=== PATIENT | male | born 1965 | race Caucasian/White ===

== ENCOUNTER 2024-12-21 07:04 | Outpatient (CLI) | payer OTHER, SELFPAY ==
--- NOTE | 2024-12-21 07:15 | CRLHL7_ITS ---
For Patients: As a result of the Century Cures Act, medical imaging exams and procedure reports are released immediately into your electronic medical record. You may view this report before your referring provider. If you have questions, please contact your health care provider. INDICATION: Hypertension TECHNIQUE: Grayscale, color Doppler and power Doppler evaluation of the kidneys and renal arteries performed bilaterally COMPARISON: None available FINDINGS: BILATERAL RENAL ARTERY DUPLEX ULTRASOUND ABDOMINAL AORTA: Peak systolic velocity = 125 cm/s. No aortic aneurysm. RIGHT KIDNEY: 10.4 cm in length. There is no hydronephrosis. Peak systolic velocity = 80 cm/second Renal artery to aortic peak systolic velocity ratio = 0.64 Resistive indices: 0.61 - 0.69 Renal vein = patent LEFT KIDNEY: 11.5 cm in length. There is no hydronephrosis. Peak systolic velocity = 113 cm/second. There are 2 renal arteries noted. Velocities are within normal limits. Renal artery to aortic peak systolic velocity ratio = 0.91 Resistive indices: 0.67-0.76 Renal vein = patent IMPRESSION: No evidence of significant renal artery stenosis. Dictated by Angelito Sanchez MD @ 12/21/2024 1:01:12 PM (Electronically Signed)
== END 2024-12-21 07:05 | disposition home or self-care (01) ==
LOC: US 07:11
PROVIDERS: PCP Family Medicine; Visit Provider Family Medicine
DX: I10 Essential (primary) hypertension (principal)
CPT/HCPCS: 76775; 93975

== ENCOUNTER 2025-08-06 23:31 | Emergency (ER) | payer OTHER, SELFPAY ==
--- OUTSIDE RECORDS SUMMARY | 2025-08-06 23:34 | XMS_ITS | Clinical Summary ---
Author Organization [employer] [facility] Address [address] [place] [address] Care Team Providers Care Nursing Manager Name Role Phone Maximiliano Summers MD Primary Care Provider Stephanie Hayes MD Unavailable [phone] Allergies No known active allergies Medications MedicationSigDispense QuantityRefillsLast FilledStart DateEnd DateStatus aspirin (ECOTRIN) 81 mg enteric coated tablet Indications:Antiplatelet or antithrombotic long-term useTake 1 tablet by mouth once daily with a meal.Active allopurinoL (ZYLOPRIM) 300 mg tablet Indications:Gout, unspecified cause, unspecified chronicity, unspecified site Take 1 Tablet (300 mg) by mouth once daily. 90 Tablet 5Active atorvastatin (LIPITOR) 20 mg tablet Indications:Hyperlipidemia, unspecified hyperlipidemia typeTake 1 Tablet (20 mg) by mouth at bedtime. 90 Tablet 5Active fenofibrate nanocrystallized (TRICOR) 145 mg tablet Indications:HypertriglyceridemiaTake 1 Tablet (145 mg) by mouth once daily with a meal. 90 Tablet 5Active omeprazole (PRILOSEC) 20 mg Delayed-Release capsule Indications:Gastroesophageal reflux disease without esophagitisTake 1 Capsule (20 mg) by mouth once daily before a meal. 90 Capsule 5Active tirzepatide (weight loss) (Zepbound) 15 mg/0.5 mL pen Indications:Obesity, unspecified class, unspecified obesity type, unspecified whether serious comorbidity presentInject 15 mg subcutaneous once weekly. 6 mL 5Active NIFEdipine 60 mg extended-release tablet Indications:HTN (hypertension)Take 1 Tablet (60 mg) by mouth once daily before a meal. 90 Tablet 306//931113/6Active cholecalciferol (Vitamin D3) 2,000 unit tablet Indications:Vitamin D deficiencyTake 1 Tablet (2,000 units) by mouth once daily. Please start these tablets after you complete the weekly Ergocalciferol course. 90 Tablet 5Active tadalafiL (CIALIS;ADCIRCA) 20 mg tablet Indications:Other male erectile dysfunctionTake 1 Tablet (20 mg) by mouth once daily if needed for Erectile Dysfunction. Take 30 minutes before sexual activity. 10 Tablet 5Active torsemide 40 mg tab Indications:Leg edemaTake 40 mg by mouth once daily. 90 Tablet 5Active carvediloL (COREG) 6.25 mg tablet Indications:Benign essential HTNTAKE 1 TABLET(6.25 MG) BY MOUTH TWICE DAILY WITH MEALS 180 Tablet 5Active losartan (COZAAR) 100 mg tablet Indications:Resistant hypertension,HTN (hypertension)Take 1 Tablet (100 mg) by mouth once daily. 30 Tablet 1112/971150/6Active carvediloL 6.25 mg tablet Indications:Benign essential HTNTake 1 Tablet (6.25 mg) by mouth two times daily with meals. 60 Tablet /01/2025Discontinued losartan (COZAAR) 50 mg tablet Indications:Resistant hypertensionTake 1 Tablet (50 mg) by mouth once daily. 30 Tablet 1108/20240816/12/2024Discontinued(*Medication adjustment) Active Problems ProblemNoted DateDiagnosed DateBenign essential HTN2Adenomatous colon polyp04/23/2015 Overview (12/07/2022): Colonoscopy 04/2015 polyp repeat in 5 years Colonoscopy 11/2022 hyperplastic polyp, repeat in 10 years Mixed pxezfldospjymv85/04/2014Impaired fasting drndcwu0701/16/2014Obesity 01/16/2014GERD (gastroesophageal reflux disease) Resolved Problems ProblemNoted DateDiagnosed DateResolved DateVitamin D uxkfnfivjipcy58/31/2015 05/08/2019Elevated BP Encounters DateTypeDepartmentCare LxwdVdaxmwcyzux65/05/2025 9:[address] [facility] [address] [place] [address] Stephanie Hayes MD Follow Up07/19/2025Refill [facility] [address] [place] [address] Stephanie Hayes MD Refill Request (Losartan)07/19/20259557Ljuumd09/04/2025Refill [facility] [address] [place] [address] Maximiliano Summers MD Refill Request (Carvedilol)07/05/2025 9:00 AM CSTOrders Only [facility] [address] [place] [address] [place], [place] Lab07/05/2025Travelfrom Last 3 Months Immunizations ImmunizationAdministration DatesNext DueCOVID-19 vaccine ([employer] 30mcg/0.3mL) 12YO+ BIVALENT PF, MDV2COVID-19 vaccine ([employer] 30mcg/0.3mL) PF, MDV04INFLUENZA, IIV3 PF (AGE >= 6 MO)06/10/2024 Influenza, UPX13710/13/2019,05/08/2019,05/26/2018Pneumococcal Conj 20-valent (Prevnar 20)09/14/2024Td (Age >=7 Years)08/15/1999Td, Preservative Free (age >= 7 Years)05/08/2019,04/09/2013Tdap08/22/2009Zoster (Shingrix-RZV, recombinant) 06/01/2022,08/12/2020 Family History Medical HistoryRelationNameCommentsHeart DiseaseFatherCHF age 68Cancer-breast Motherdied at age 43DiabetesNeg. 1Cancer-colonNeg. 2Cancer-prostateNeg. 3Heart DiseasePaternal UncleMI at age 47Anesthesia ProblemNo Family HistoryRelationName StatusCommentsFatherDeceasedMotherDeceasedNeg. 1Neg. 2Neg. 3Paternal Uncle Social History Tobacco UseTypesPacks/DayYears UsedDateSmoking Tobacco: NeverSmokeless Tobacco: FormerChewQuit: 08/15/2024 Tobacco Cessation:Counseling Given: No Alcohol UseStandard Drinks/WeekCommentsYes7 (1 standard drink = 0.6 oz pure alcohol)1 to 2 per day.PHQ-2AnswerDate RecordedPHQ-2 TOTAL [id number] Social ConnectionsAnswerDate RecordedDo you often feel lonely or isolated from those around you?lcohol UseAnswerDate RecordedHow often do you have a drink containing alcohol?How many drinks containing alcohol do you have on a typical day when you are drinking?How often do you have five or more drinks on one occasion?Financial Resource StrainAnswer Date RecordedDifficulty of Paying Living Hpmpchuv950/31/2025Difficulty of Paying Living ExpensesNot on file09/14/2024Food InsecurityAnswerDate RecordedDo you worry your food will run out before you are able to buy more? Transportation NeedsAnswerDate RecordedDoes lack of transportation keep you from medical appointments?Does lack of transportation keep you from work, meetings or getting things that you need?Housing StabilityAnswerDate RecordedWhat is your housing situation today?UtilitiesAnswerDate RecordedDo you have trouble paying for utilities (for example, heat, electricity, water, phone)?Sex and Gender InformationValueDate RecordedSex Assigned at BirthNot on fileLegal IqfIfzs0608/28/2012 5:43 AM SCRAP HOIST OPERATOR Gender IdentityNot on fileSexual OrientationNot on file Last Filed Vital Signs Vital SignReadingTime TakenCommentsBlood Auujqgqu635/8212 9:16 AM SCRAP HOIST OPERATOR Rjoan875807/19/2025 9:16 AM TVWVtinyguijkq37.7 ??C (98 ??F)09/25/2019 2:10 PM SCRAP HOIST OPERATOR Respiratory Vtze58683 11:40 AM CDTOxygen Cesbcvtehs82%12/17/2024 11:18 AM CDTInhaled Oxygen Concentration--Guaron849.6 kg (292 lb 4.8 oz)07/19/2025 9:16 AM CSTno ezrceOotetv403.4 cm (6' 1)03/19/2025 3:24 PM CDTBody Mass Index38.56 03/19/2025 3:24 PM CDT Plan of Treatment DateTypeDepartmentCare Team (Latest Contact Info)Zrhqbbcynll79/26/2026 3:00 PM CDTOrders Only [facility] [address] [place] [address] [place] 01/13/2026 9:00 AM CDTOffice Visit [facility] [address] [place] [address] Stephanie Hayes MD [address] [place] [address] Health MaintenanceDue DateLast DoneCommentsRSV vaccine for adults or (1 - Risk 50-74 years 1-dose series)2013COVID-19 vaccine series (2024- season), 05/03/2022, 07/31/2021, Additional history existsInfluenza Vaccine (#1), 08/12/2020, 05/08/2019, Additional history existsDepression screening for age 12+, 05/20/2023, 08/12/2020, Additional history existsBMI (ht and wt on same day) for age 18+, 02/07/2025, 01/10/2025, Additional history exists Tetanus , 04/09/2013, 08/22/2009, Additional history existsLipids for age 45-750, 05/20/2023, 10/15/2022, Additional history existsColonoscopy through age 7504///, 12/03/2022, 12/03/2022, Additional history existsHepatitis C screening for age 18-07Zlxwullkx93/06/2014Zoster (shingles) series for age 50+Mppzbsaxd87/18/2022, 08/12/2020HIV for age 15-21Itzwwovng32/06/2023neumococcal series for age 50+ Uawjbexyq51/31/2025Hepatitis B series for 19+Aged OutNo longer eligible based on patient's age to complete this topic Procedures Procedure NamePriorityDate/TimeAssociated DiagnosisCommentsUA W/ SEDIMENT EXAM REFLEXED PER SSDADGTAVaasvop79/21/2025 8:55 AM SCRAP HOIST OPERATOR Resistant hypertension Bilateral leg edema Stage 3a chronic kidney disease (HC) HMLPZYLRKHOjhqnin65/21/2025 8:55 AM SCRAP HOIST OPERATOR Resistant hypertension Bilateral leg edema Stage 3a chronic kidney disease (HC) BASIC METABOLIC CJREWUrcvlzl75/21/2025 8:55 AM SCRAP HOIST OPERATOR Resistant hypertension Bilateral leg edema Stage 3a chronic kidney disease (HC) LIPID PANEL W REFLEX MEASURED JGGIphrpvx10/31/2025 9:33 AM SCRAP HOIST OPERATOR Hypertriglyceridemia ANTI HIV 1/1Qhvenuc24/06/2023 8:59 AM CDT Screening for HIV (human immunodeficiency virus) COLONOSCOPY UEYTDWCPHEawrdcu60/21/2023 10:28 AM CDT History of colon polyps ANTI YEYLjeutja53/06/2014 7:40 AM CDT Need for hepatitis C screening test from Last 3 Months or Most Recently Relevant to Health Maintenance Results * UA W/ SEDIMENT EXAM REFLEXED PER CRITERIA (07/05/2025 8:55 AM SCRAP HOIST OPERATOR)Component ValueRef RangeTest MethodAnalysis TimePerformed AtPathologist SignatureCOLOR LPYTQEGJYROA97/22/2025 3:10 AM CSTQUEST DIAGNOSTICSSPECIFIC GRAVITY1.0091.001 - 1.2337907/06/2025 3:10 AM CSTQUEST DIAGNOSTICSPH6.05.0 - 8.011 3:10 AM CSTQUEST ZDTGFQADQKNUEJEBAJKIEUYOKXSWGCOVFK21/22/2025 3:10 AM CSTQUEST NBTCRGGEHMUKOIMIOGKKVMBSTFXAUDUMED00/22/2025 3:10 AM CSTQUEST DIAGNOSTICS WIPGFERDZVYDDUWOPUOPMAK23/22/2025 3:10 AM CSTQUEST DIAGNOSTICSBILIRUBIN WFYSPWIPKYUEUUMS46/22/2025 3:10 AM CSTQUEST DIAGNOSTICSOCCULT BLOODNEGATIVE KNOLFOLY36/22/2025 3:10 AM CSTQUEST DIAGNOSTICSNITRITENEGATIVENEGATIVE 07/06/2025 3:10 AM CSTQUEST DIAGNOSTICSLEUKOCYTE ESTERASENEGATIVENEGATIVE 07/06/2025 3:10 AM CSTQUEST GWQFFQVZCGFNUYLAIQHVQFMZWKVOQJS76/22/2025 3:10 AM CSTQUEST DIAGNOSTICSSpecimen (Source)Anatomical Location / Laterality Collection Method / VolumeCollection TimeReceived TimeUrineURINE SPECIMEN / UnknownNon-Blood / Tqedgsv2007/05/2025 8:55 AM CST07/05/2025 8:55 AM SCRAP HOIST OPERATOR Narrative Authorizing ProviderResult TypeResult StatusMosurya Hayes MDURINEFinal Result Performing OrganizationAddressCity/State/ZIP CodePhone Number [facility] [address] [address], [place] [phone] * PHOSPHORUS (07/05/2025 8:55 AM SCRAP HOIST OPERATOR)ComponentValueRef RangeTest MethodAnalysis TimePerformed AtPathologist SignaturePHOSPHATE ( PHOSPHORUS)2.92.5 - 4.5 mg/dL07/06/2025 3:55 AM CSTQUEST DIAGNOSTICSSpecimen (Source)Anatomical Location / LateralityCollection Method / VolumeCollection TimeReceived Time BloodBLOOD SPECIMEN / UnknownQuest Collect / Ufzhukn1007/05/2025 8:55 AM SCRAP HOIST OPERATOR 07/05/2025 8:55 AM SCRAP HOIST OPERATOR Narrative Authorizing ProviderResult TypeResult StatusMosurya Hayes MDCHEMISTRYFinal ResultPerforming OrganizationAddressty/State/ZIP CodePhone Number [facility] [address] [place] [address], [place] [phone] * (ABNORMAL) BASIC METABOLIC PANEL (07/05/2025 8:55 AM SCRAP HOIST OPERATOR)ComponentValueRef RangeTest MethodAnalysis TimePerformed AtPathologist GvmguwiyqXGIWSO289098 - 146 mmol/L109/05/2024 3:55 AM CSTQUEST DIAGNOSTICSPOTASSIUM4.83.5 - 5.3 mmol/L 07/06/2025 3:55 AM CSTQUEST DIAGNOSTICSCARBON GUUPFKI6678 - 32 mmol/L 07/06/2025 3:55 AM CSTQUEST QSYYSYFADDKQUONMGS2925 - 99 mg/dL07/06/2025 3:55 AM CSTQUEST DIAGNOSTICSComment: ? Fasting reference interval CALCIUM9.78.6 - 10.3 mg/dL07/06/2025 3:55 AM CSTQUEST DIAGNOSTICSCREATININE1.40 (H)0.70 - 1.35 mg/dL07/06/2025 3:55 AM CSTQUEST DIAGNOSTICSBUN/CREATININE RATIO8 6 - 22 (calc)07/06/2025 3:55 AM CSTQUEST SCQZIXXUDQHFWSS72(L)> OR = 60 mL/min/1.91p90907/06/2025 3:55 AM CSTQUEST DIAGNOSTICSUREA NITROGEN (BUN)117 - 25 mg/dL07/06/2025 3:55 AM CSTQUEST DIAGNOSTICSELECTROLYTE ZOBPKYN48 - 17 mmol/L (calc)07/06/2025 3:55 AM CSTQUEST CLIIZRKRCNNSCTCHENW46510 - 110 mmol/L 07/06/2025 3:55 AM CSTQUEST DIAGNOSTICSSpecimen (Source)Anatomical Location / LateralityCollection Method / VolumeCollection TimeReceived TimeBloodBLOOD SPECIMEN / UnknownQuest Collect / Kypgumc3707/05/2025 8:55 AM CST07/05/2025 8:55 AM SCRAP HOIST OPERATOR Narrative Authorizing ProviderResult TypeResult StatusMohamed Christiano Hayes MDCHEMISTRYFinal ResultPerforming OrganizationAddressCity/State/ZIP CodePhone Number [facility] [address] [place] [address], * (ABNORMAL) LIPID PANEL W REFLEX MEASURED LDL (09/14/2024 9:33 AM SCRAP HOIST OPERATOR)Component ValueRef RangeTest MethodAnalysis TimePerformed AtPathologist Signature CHOLESTEROL, SPRQN019(H)<200 mg/dLQuest Diagnostics-Wood DaleHDL CHXWWINKBFS25 > OR = 40 mg/dLQuest iRewardChart-ReSnap XoblXKTIJVYEMJZWD906(H)<150 mg/dLQuest iRewardChart-ReSnap DaleComment: If a non-fasting specimen was collected, consider repeat triglyceride testing on a fasting specimen if clinically indicated. Camden et al. J. of Clin. Lipidol. 2015;9:129-169. LDL-CHOLESTEROLQuest Total-traxEssentia HealtheComment: LDL cholesterol not calculated. Triglyceride levels greater than 400 mg/dL invalidate calculated LDL results. Reference range: <100 Desirable range <100 mg/dL for primary prevention; <70 mg/dL for patients with CHD or diabetic patients with > or = 2 CHD risk factors. LDL-C is now calculated using the Kaitlin calculation, which is a validated novel method providing better accuracy than the Friedewald equation in the estimation of LDL-C. Solo MITTAL et al. TEO. 2013;310(19): 1398-1398 (http://education.Cover Lockscreen/faq/LLS271) CHOL/HDLC RATIO5.0(H)<5.0 (calc)Sapient-ReSnap [facility] HospitaleNON HDL CHOLESTEROL 168(H)<130 mg/dL (calc)SIMTEK [facility] HospitaleComment: For patients with diabetes plus 1 major ASCVD risk factor, treating to a non-HDL-C goal of <100 mg/dL (LDL-C of <70 mg/dL) is considered a therapeutic option. Specimen (Source)Anatomical Location / LateralityCollection Method / Volume Collection TimeReceived TimeBloodBLOOD SPECIMEN / Pmnvurt1309/14/2024 9:33 AM SCRAP HOIST OPERATOR 09/14/2024 9:33 AM SCRAP HOIST OPERATOR Narrative Authorizing ProviderResult TypeResult StatusRichtad Summers MDCHEMISTRY Final ResultPerforming OrganizationAddressCity/State/ZIP CodePhone Number [employer] [address] [place] [address], [facility] [address] [place] [address] * ANTI HIV 1/2 (05/20/2023 8:59 AM CDT)ComponentValueRef RangeTest Method Analysis TimePerformed AtPathologist SignatureHIV-1/HIV-2 SCREENNon-Reactive Non-Iddesmwh11/06/2023 5:47 PM CDCARILION [facility] Comment:HIV-1 p24 and HIV-1/HIV-2 Ab Not Detected.Specimen (Source)Anatomical Location / LateralityCollection Method / VolumeCollection TimeReceived Time BloodBLOOD SPECIMEN / UnknownVenipuncture / Xespdwb7005/20/2023 8:59 AM CDT 05/20/2023 9:00 AM CDT Narrative Authorizing ProviderResult TypeResult StatusRichard Meryl Summers MDSEND OUTS Final ResultPerforming OrganizationAddressCity/State/ZIP CodePhone Number [facility] [address] [place] [address], * COLONOSCOPY (12/03/2022 10:38 AM CDT)Specimen (Source)Anatomical Location / LateralityCollection Method / VolumeCollection TimeReceived Time12/03/2022 10:38 AM CDT Narrative Transcriptions Solo Bonilla MD - 12/03/2022 11:28 AM CDT Patient Name: Quentin Harkins Procedure Date: 12/03/2022 Gender: Male Date of : 1965 Admit Type: Outpatient Procedure: Colonoscopy Proceduralist: Solo Bonilla MD , Chelsie Francois RN (Nurse), Za Orellana (Nurse) Referring MD: Maximiliano Summers Indications/Pre-Op Diagnosis: High risk colon cancer surveillance:Personal history of adenoma less than 10 mm in size, Last colonoscopy: April 2015 Medications: Fentanyl 100 micrograms IV, Midazolam 2 mgIV, The level of sedation administered wasmoderate Procedure Description: The patient had risks, benefits and alternatives explained to andgave informed consent. The patient had a stable cardiopulmonary status and judged an adequate candidate for conscious sedation. The endoscope [id number] was passed through the anus andadvanced to the cecum, identified by appendiceal orifice and ileocecal valve.The colonoscopy was performed without difficulty. The patient toleratedthe procedure well. The quality of the bowel preparation was good. The ileocecal valve, appendiceal orifice, and rectum were photographed. Complications: No immediate complications. Estimated Blood Loss & Specimen: Estimated blood loss: none. Specimen collected - Yes and sent to Laboratory Findings: The perianal and digital rectal examinations were normal. A 2 mm polyp was found in the rectum. The polyp was sessile. Thepolyp was removed with a cold biopsy forceps. Resection and retrieval were complete. Scattered small and large-mouthed diverticula were found in theentire colon. The exam was otherwise without abnormality. Impressions/Post-Op Diagnosis: - One 2 mm polyp in the rectum, removed with a cold biopsy forceps. Resected and retrieved. - Diverticulosis in the entire examined colon. - The examination was otherwise normal. Recommendation: - Patient has a contact number available for emergencies. The signsand symptoms of potential delayed complications were discussed with the patient. Return to normal activities tomorrow. Written discharge instructions were provided to the patient. - Resume previous diet. - Continue present medications. - Await pathology results. - Repeat colonoscopy for surveillance based on pathology results. Moderate Sedation: A time out was performed before the procedure. Moderate (conscious) sedation was administered by the endoscopy nurse and supervised bythe endoscopist. The following parameters were monitored: oxygensaturation, heart rate, blood pressure, EKG, CO2, respiratory rate, adequacy of pulmonary ventilation and reponse to care. Please refer to the patient's medical record flowsheets and nursing notes for moderate sedation details. Total physician intraservice time was 14 minutes. Solo Bonilla MD 12/03/2022 11:28:25 AM This report has been signed electronically. Note Initiated On: 12/03/2022 10:38 AM Procedure Code(s): --- Professional --- 42827, Colonoscopy, flexible; with biopsy, single or multiple Diagnosis Code(s): --- Professional --- Z86.010, Personal history of colonicpolyps D12.8, Benign neoplasm of rectum K57.30, Diverticulosis of large intestine without perforation or abscess withoutbleeding CPT copyright 2021 [employer]. All rights reserved. The codes documented in this report are preliminary and upon braille coder reviewmay be revised to meet current compliance requirements. Scope In: 11:09:33 AM Scope Withdrawal Time 0 hours 8 minutes 13 seconds Scope Out: 11:21:13 AM Authorizing ProviderResult TypeResult StatusMarmisha Bonilla MDPROCEDURE ORD Final Result * ANTI HCV [22814.2] (01/18/2014 7:40 AM CDT)ComponentValueRef RangeTest Method Analysis TimePerformed AtPathologist SignatureHEPATITIS C ANTIBODYNon-Reactive Non-Ftwbwccb02/06/2014 1:44 PM CDTALKITTSON [facility]ORIAL [facility] Specimen (Source)Anatomical Location / LateralityCollection Method / Volume Collection TimeReceived TimeBlood specimen (specimen)BLOOD SPECIMEN / Unknown Venipuncture / Boztcbe5601/18/2014 7:40 AM CDT01/18/2014 7:41 AM CDT Narrative [facility] - 01/18/2014 1:44 PM CDT Antibodies to HCV not detected; does not exclude the possibility of exposure to HCV. Authorizing ProviderResult TypeResult StatusRichtad Summers MDSEND OUTS Final ResultPerforming OrganizationAddressCity/State/ZIP CodePhone Number [facility] [address] [place] [address], [place] from Last 3 Months or Most Recently Relevant to Health Maintenance Insurance * Guarantor: Quentin Harkinscount TypeRelation to PatientDate of BirthPhone Billing AddressPersonal/MuxhbwBfia07/22/1966 [address], [place] [address] Care Teams Team MemberRelationshipSpecialtyStart DateEnd Date Maximiliano Summers MD [address] [place] [address] PCP - General02/16/07 Stephanie Hayes MD [address] [facility] [address] [place] [address] Nephrology12/26/24
[2025-08-06 23:47] VITALS: BP 116/77; PULSE 86; RESP 18; TEMP 36.6; O2SAT 99; BMI 35.9
--- OUTSIDE RECORDS SUMMARY | 2025-08-07 02:58 | XMS_ITS | Clinical Summary ---
Author Organization [employer] [facility] Address [address] [place] [address] Care Team Providers Care Label Maker Name Role Phone Maximiliano Summers MD Primary Care Provider Stephanie Hayes MD Unavailable [phone] Allergies No known active allergies Medications MedicationSigDispense [...] once daily before a meal. 90 Tablet 306//311668/6Active cholecalciferol (Vitamin D3) 2,000 unit tablet Indications:Vitamin [...] mg) by mouth once daily. 30 Tablet 1112/229134/6Active carvediloL 6.25 mg tablet Indications:Benign essential HTNTake [...] hyperplastic polyp, repeat in 10 years Mixed wyeasivjwiwftz89/04/2014Impaired fasting prhwgty3001/16/2014Obesity 01/16/2014GERD (gastroesophageal reflux disease) Resolved Problems ProblemNoted DateDiagnosed DateResolved DateVitamin D luoctamqfnjvk74/31/2015 05/08/2019Elevated BP Encounters DateTypeDepartmentCare IicrPpfpiawglxa95/05/2025 9:00 AM CSTOffice Visit [facility] [address] [place] [address] Stephanie Hayes MD Follow Up07/19/2025Refill [facility] [address] [place] [address] Stephanie Hayes MD Refill Request (Losartan)07/19/20252566Swqess78/04/2025Refill [facility] [address] [place] [address] Maximiliano Summers MD Refill Request (Carvedilol)07/05/2025 9:00 AM CSTOrders Only [facility] [address] [place] [address] [place], [place] Lab07/05/2025Travelfrom Last 3 Months Immunizations ImmunizationAdministration DatesNext DueCOVID-19 vaccine ([employer] 30mcg/0.3mL) 12YO+ BIVALENT PF, MDV2COVID-19 vaccine ([employer] 30mcg/0.3mL) PF, MDV04INFLUENZA, IIV3 PF (AGE >= 6 MO)06/10/2024 Influenza, HNZ58310/13/2019,05/08/2019,05/26/2018Pneumococcal Conj 20-valent (Prevnar 20)09/14/2024Td (Age >=7 Years)08/15/1999Td, [...] alcohol)1 to 2 per day.PHQ-2AnswerDate RecordedPHQ-2 TOTAL DAIUZ640 Social ConnectionsAnswerDate RecordedDo you often feel lonely or isolated from those around you?lcohol UseAnswerDate RecordedHow often do you have a drink containing alcohol?How many drinks containing alcohol do you have on a typical day when you are drinking?How often do you have five or more drinks on one occasion?Financial Resource StrainAnswer Date RecordedDifficulty of Paying Living Vsfdjlyn205/31/2025Difficulty of Paying Living ExpensesNot on file09/14/2024Food InsecurityAnswerDate [...] InformationValueDate RecordedSex Assigned at BirthNot on fileLegal QcwEbys0508/28/2012 5:43 AM [employer] Gender IdentityNot on fileSexual OrientationNot on file Last Filed Vital Signs Vital SignReadingTime TakenCommentsBlood Xngyefzp831/8212 9:16 AM [employer] Mnmet866807/19/2025 9:16 AM FZKDyntzziklci05.7 ??C (98 ??F)09/25/2019 2:10 PM [employer] Respiratory Vbnt86853 11:40 AM CDTOxygen Cjalihiyua41%12/17/2024 11:18 AM CDTInhaled Oxygen Concentration--Nmzpix023.6 kg (292 lb 4.8 oz)07/19/2025 9:16 AM CSTno lydhcUsdxlf236.4 cm (6' 1)03/19/2025 3:24 PM CDTBody Mass Index38.56 03/19/2025 3:24 PM CDT Plan of Treatment DateTypeDepartmentCare Team (Latest Contact Info)Bygudnlmokj30/26/2026 3:00 PM CDTOrders Only [facility] [address] [place] [address] [place] 01/13/2026 9:00 AM CDTOffice Visit [facility] [address] [place] [address] Stephanie Hayes MD [address] [place] [address] Health MaintenanceDue DateLast DoneCommentsRSV vaccine for adults or (1 - Risk 50-74 years 1-dose series)2013COVID-19 vaccine series (2024- season), 05/03/2022, 07/31/2021, Additional history existsInfluenza Vaccine (#1), 08/12/2020, 05/08/2019, Additional history existsDepression screening for age 12+, 05/20/2023, 08/12/2020, Additional history existsBMI (ht and wt on same day) for age 18+, 02/07/2025, 01/10/2025, Additional history exists Tetanus iniidpl40, 04/09/2013, 08/22/2009, Additional history existsLipids for age 45-750, 05/20/2023, 10/15/2022, Additional history existsColonoscopy through age 7504///, 12/03/2022, 12/03/2022, Additional history existsHepatitis C screening for age 18-55Xsxflaqin36/06/2014Zoster (shingles) series for age 50+Asyldctvh79/18/2022, 08/12/2020HIV for age 15-18Vxwpedpkw53/06/2023neumococcal series for age 50+ Tpfixeiya44/31/2025Hepatitis B series for 19+Aged OutNo longer eligible based on patient's age to complete this topic Procedures Procedure NamePriorityDate/TimeAssociated DiagnosisCommentsUA W/ SEDIMENT EXAM REFLEXED PER ZINBERRVSjjrgxh85/21/2025 8:55 AM [employer] Resistant hypertension Bilateral leg edema Stage 3a chronic kidney disease (HC) HTFANYKYJYGcnuawk56/21/2025 8:55 AM [employer] Resistant hypertension Bilateral leg edema Stage 3a chronic kidney disease (HC) BASIC METABOLIC XBIWLHocatix15/21/2025 8:55 AM [employer] Resistant hypertension Bilateral leg edema Stage 3a chronic kidney disease (HC) LIPID PANEL W REFLEX MEASURED ZCMIiblmsg04/31/2025 9:33 AM [employer] Hypertriglyceridemia ANTI HIV 1/8Efyvsux35/06/2023 8:59 AM CDT Screening for HIV (human immunodeficiency virus) COLONOSCOPY HEKMSEFQUGqgayzm95/21/2023 10:28 AM CDT History of colon polyps ANTI LVLPyfwksz98/06/2014 7:40 AM CDT Need for hepatitis C screening test from Last 3 Months or Most Recently Relevant to Health Maintenance Results * UA W/ SEDIMENT EXAM REFLEXED PER CRITERIA (07/05/2025 8:55 AM [employer])Component ValueRef RangeTest MethodAnalysis TimePerformed AtPathologist SignatureCOLOR QTNNBVCKEMGD09/22/2025 3:10 AM CSTQUEST DIAGNOSTICSSPECIFIC GRAVITY1.0091.001 - 1.0154507/06/2025 3:10 AM CSTQUEST DIAGNOSTICSPH6.05.0 - 8.011 3:10 AM CSTQUEST ITUOQAGZMGKRGFLYGUYFZNLFGOVMTFYPGC37/22/2025 3:10 AM CSTQUEST MEABFTSOLBMOCJSNMJVCJIXOXDEWOHZWME23/22/2025 3:10 AM CSTQUEST DIAGNOSTICS LXXBUTPHKZNKERNGRKTMZSZ72/22/2025 3:10 AM CSTQUEST DIAGNOSTICSBILIRUBIN LRLBWWGFQJPWCWBB09/22/2025 3:10 AM CSTQUEST DIAGNOSTICSOCCULT BLOODNEGATIVE DQIVXZQO47/22/2025 3:10 AM CSTQUEST DIAGNOSTICSNITRITENEGATIVENEGATIVE 07/06/2025 3:10 AM CSTQUEST DIAGNOSTICSLEUKOCYTE ESTERASENEGATIVENEGATIVE 07/06/2025 3:10 AM CSTQUEST YDPPDKXHMZQRJQLIUGQTJUNKZDVUSDE43/22/2025 3:10 AM CSTQUEST DIAGNOSTICSSpecimen (Source)Anatomical Location / Laterality Collection Method / VolumeCollection TimeReceived TimeUrineURINE SPECIMEN / UnknownNon-Blood / Pwublga5207/05/2025 8:55 AM CST07/05/2025 8:55 AM [employer] Narrative Authorizing ProviderResult TypeResult StatusMosurya Hayes MDURINEFinal Result Performing OrganizationAddressCity/State/ZIP CodePhone Number [facility] [address] [address], [place] [phone] * PHOSPHORUS (07/05/2025 8:55 AM [employer])ComponentValueRef RangeTest MethodAnalysis TimePerformed AtPathologist SignaturePHOSPHATE ( PHOSPHORUS)2.92.5 - 4.5 mg/dL07/06/2025 3:55 AM CSTQUEST DIAGNOSTICSSpecimen (Source)Anatomical Location / LateralityCollection Method / VolumeCollection TimeReceived Time BloodBLOOD SPECIMEN / UnknownQuest Collect / Bfsvvkx5907/05/2025 8:55 AM [employer] 07/05/2025 8:55 AM [employer] Narrative Authorizing ProviderResult TypeResult StatusMosurya Hayes MDCHEMISTRYFinal ResultPerforming OrganizationAddressty/State/ZIP CodePhone Number [facility] [address] [place] [address], [place] [phone] * (ABNORMAL) BASIC METABOLIC PANEL (07/05/2025 8:55 AM [employer])ComponentValueRef RangeTest MethodAnalysis TimePerformed AtPathologist MgtxsosgvHHBVCH184059 - 146 mmol/L109/05/2024 3:55 AM CSTQUEST DIAGNOSTICSPOTASSIUM4.83.5 - 5.3 mmol/L 07/06/2025 3:55 AM CSTQUEST DIAGNOSTICSCARBON EEZELLP2409 - 32 mmol/L 07/06/2025 3:55 AM CSTQUEST AOMTFKXTWZPXYMJXUA7328 - 99 mg/dL07/06/2025 3:55 AM CSTQUEST DIAGNOSTICSComment: ? Fasting reference interval CALCIUM9.78.6 - 10.3 mg/dL07/06/2025 3:55 AM CSTQUEST DIAGNOSTICSCREATININE1.40 (H)0.70 - 1.35 mg/dL07/06/2025 3:55 AM CSTQUEST DIAGNOSTICSBUN/CREATININE RATIO8 6 - 22 (calc)07/06/2025 3:55 AM CSTQUEST WNSJHMDCKYORJIZ07(L)> OR = 60 mL/min/1.70z44407/06/2025 3:55 AM CSTQUEST DIAGNOSTICSUREA NITROGEN (BUN)117 - 25 mg/dL07/06/2025 3:55 AM CSTQUEST DIAGNOSTICSELECTROLYTE GMQANJK43 - 17 mmol/L (calc)07/06/2025 3:55 AM CSTQUEST ARXFEOTMCXXWXUAPLDZ18937 - 110 mmol/L 07/06/2025 3:55 AM CSTQUEST DIAGNOSTICSSpecimen (Source)Anatomical Location / LateralityCollection Method / VolumeCollection TimeReceived TimeBloodBLOOD SPECIMEN / UnknownQuest Collect / Xvctzyy7307/05/2025 8:55 AM CST07/05/2025 8:55 AM [employer] Narrative Authorizing ProviderResult TypeResult StatusMohamed Christiano Hayes MDCHEMISTRYFinal ResultPerforming OrganizationAddressCity/State/ZIP CodePhone Number [facility] [address] [place] [address], * (ABNORMAL) LIPID PANEL W REFLEX MEASURED LDL (09/14/2024 9:33 AM [employer])Component ValueRef RangeTest MethodAnalysis TimePerformed AtPathologist Signature CHOLESTEROL, VLZVO964(H)<200 mg/dLQuest Diagnostics-Wood DaleHDL QAWBRLZKQMP43 > OR = 40 mg/dLQuest [employer] UihbHNZPJRCICWHDH493(H)<150 mg/dLQuest [employer].[facility] DaleComment: If a non-fasting specimen was collected, consider repeat triglyceride testing on a fasting specimen if clinically indicated. Camden et al. J. of Clin. Lipidol. 2015;9:129-169. LDL-CHOLESTEROLQuest RocketBankSandstone Critical Access HospitaleComment: LDL cholesterol not calculated. Triglyceride levels greater [...] LDL-C. Solo MITTAL et al. TEO. 2013;310(19): 1402-2270 (http://education.Minitrade/faq/OZO224) CHOL/HDLC RATIO5.0(H)<5.0 (calc)[employer] HospitaleNON HDL CHOLESTEROL 168(H)<130 mg/dL (calc)[employer] [facility] HospitaleComment: For patients with diabetes plus 1 major ASCVD risk factor, treating to a non-HDL-C goal of <100 mg/dL (LDL-C of <70 mg/dL) is considered a therapeutic option. Specimen (Source)Anatomical Location / LateralityCollection Method / Volume Collection TimeReceived TimeBloodBLOOD SPECIMEN / Kythiqa0609/14/2024 9:33 AM [employer] 09/14/2024 9:33 AM [employer] Narrative Authorizing ProviderResult TypeResult StatusRichtad Summers MDCHEMISTRY Final ResultPerforming OrganizationAddressCity/State/ZIP CodePhone Number [employer]Mesh [facility] [address] [place] [address], [facility] [address] [place] [address] * ANTI HIV 1/2 (05/20/2023 8:59 AM CDT)ComponentValueRef RangeTest Method Analysis TimePerformed AtPathologist SignatureHIV-1/HIV-2 SCREENNon-Reactive Non-Wlnjufgp40/06/2023 5:47 PM CDPION[facility] Comment:HIV-1 p24 and HIV-1/HIV-2 Ab Not Detected.Specimen (Source)Anatomical Location / LateralityCollection Method / VolumeCollection TimeReceived Time BloodBLOOD SPECIMEN / UnknownVenipuncture / Onrcxkd2505/20/2023 8:59 AM CDT 05/20/2023 9:00 AM CDT Narrative Authorizing ProviderResult TypeResult StatusRichard Merly Summers MDSEND OUTS Final ResultPerforming OrganizationAddressCity/State/ZIP CodePhone Number [facility] [address] [place] [address], * COLONOSCOPY (12/03/2022 10:38 AM CDT)Specimen (Source)Anatomical Location / LateralityCollection Method / VolumeCollection TimeReceived Time12/03/2022 10:38 AM CDT Narrative Transcriptions Solo Bonilla MD - 12/03/2022 11:28 AM CDT Patient Name: Quentin Harknis Procedure Date: 12/03/2022 Gender: Male Date of [...] adequate candidate for conscious sedation. The endoscope [id number] was passed through the anus andadvanced to [...] 10:38 AM Procedure Code(s): --- Professional --- 78427, Colonoscopy, flexible; with biopsy, single or multiple Diagnosis Code(s): --- Professional --- Z86.010, Personal history of colonicpolyps D12.8, Benign neoplasm of rectum K57.30, Diverticulosis of large intestine without perforation or abscess withoutbleeding CPT copyright 2021 [employer]. All rights reserved. The codes documented in this report are preliminary and upon console attendant reviewmay be revised to meet current compliance requirements. Scope In: 11:09:33 AM Scope Withdrawal Time 0 hours 8 minutes 13 seconds Scope Out: 11:21:13 AM Authorizing ProviderResult TypeResult StatusMarmisha Bonilla MDPROCEDURE ORD Final Result * ANTI HCV [45386.2] (01/18/2014 7:40 AM CDT)ComponentValueRef RangeTest Method Analysis TimePerformed AtPathologist SignatureHEPATITIS C ANTIBODYNon-Reactive Non-Ljndppoa57/06/2014 1:44 PM CDTALST. [facility] Specimen (Source)Anatomical Location / LateralityCollection Method / Volume Collection TimeReceived TimeBlood specimen (specimen)BLOOD SPECIMEN / Unknown Venipuncture / Ersdydb4401/18/2014 7:40 AM CDT01/18/2014 7:41 AM CDT Narrative [facility] - 01/18/2014 1:44 PM CDT Antibodies to HCV not detected; does not exclude the possibility of exposure to HCV. Authorizing ProviderResult TypeResult StatusRichtad Summers MDSEND OUTS Final ResultPerforming OrganizationAddressCity/State/ZIP CodePhone Number [facility] [address] [place] [address], [place] from Last 3 Months or Most Recently Relevant to Health Maintenance Insurance * Guarantor: Quentin Harkinscount TypeRelation to PatientDate of BirthPhone Billing AddressPersonal/ZvvbxhSfkv76/22/1966 [address], [place] [address] Care Teams Team MemberRelationshipSpecialtyStart DateEnd Date Maximiliano Summers MD [address] [place] [address] PCP - General02/16/07 Stephanie Hayes MD [address] [facility] [address] [place] [address] Nephrology12/26/24
[2025-08-07 03:25] VITALS: BP 121/74; PULSE 80; RESP 18; TEMP 36.6; O2SAT 99
--- NOTE | 2025-08-07 04:40 | ED.GENADULT ---
HPI - General Adult General Chief complaint: Laceration/Wound Stated complaint: fall, head lac Time Seen by Provider: 08/07/25 02:24 Source: patient Mode of arrival: ambulatory Limitations: no limitations History of Present Illness HPI narrative: 59-year-old male presents to ED for evaluation of head laceration. Patient was in his home, walking into the kitchen when his foot accidentally caught on the corner of the counter, causing him to trip and fall. Reports that this was purely a mechanical type fall. He denies any syncope, dizziness, feeling unwell prior to the fall. His heard him fall and quickly attended and agrees that there was no loss of consciousness, no signs of seizures, no confusion or neurological changes after. He was able to get up and has been doing well with no reported issues other than the scalp laceration that just keeps bleeding. No vision changes, no focal neurological changes. No pain in the shoulders, elbows, wrists, hands, pelvis, back, knees or ankles. No other reported areas of skin injury or mechanical injury. It is not take any strong anticoagulants but does use a low-dose aspirin daily. He has a history of hypertension and takes this preventative Leyla but does not seem to have a strong indication for it. He was unable to get the bleeding to completely stop at home though it has slowed considerably. Unfortunately, he had a 3 hour wait to be seen due to incredibly heavy volume and high acuity in the ED at the time. He reports that past medical history is notable for hypertension, gout, hyperlipidemia. Home meds are reviewed, he reports these are accurate as listed. No known drug allergies. ROS notable for the skin symptoms only, otherwise denies times 12 systems. Related Data Home Medications ?Medication ?Instructions ?Recorded ?Confirmed allopurinol 300 mg tablet 300 mg PO DAILY 08/06/25 08/06/25 atorvastatin 20 mg tablet 20 mg PO DAILY 08/06/25 08/06/25 carvedilol 6.25 mg tablet 6.25 mg PO BID 08/06/25 08/06/25 fenofibrate nanocrystallized 145 145 mg PO DAILY 08/06/25 08/06/25 mg tablet losartan 100 mg tablet 100 mg PO DAILY 08/06/25 08/06/25 nifedipine 60 mg tablet,extended 60 mg PO DAILY 08/06/25 08/06/25 release 24 hr omeprazole 20 mg capsule,delayed 20 mg PO DAILY 08/06/25 08/06/25 release tadalafil 20 mg tablet 20 mg PO DAILY 08/06/25 08/06/25 tirzepatide (weight loss) 15 15 mg subcut DIRECTED 08/06/25 08/06/25 mg/0.5 mL subcutaneous pen injector (Zepbound) torsemide 20 mg tablet 40 mg PO DAILY 08/06/25 08/06/25 Allergies Allergy/AdvReac Type Severity Reaction Status Date / Time No Known Drug Allergies Allergy Verified 08/06/25 23:50 PFSH [facility] Social History Smoking Status: Never smoker Second hand tobacco smoke exposure: No How often do you have a drink containing alcohol: never AUDIT-C Alcohol total score: 0 Non-prescribed substance use: denies use Exam Const: Vital Signs, click to edit/add: Vital Signs - 24 hr 08/06/25 23:47 08/07/25 03:25 Temperature 97.9 F 97.9 F Pulse Rate [Right Pulse Oximeter] 86 80 Respiratory Rate 18 18 Blood Pressure [Ri ght Upper Arm] 116/77 121/74 Pulse Oximetry 99 99 Oxygen Delivery Me thod Room Air Room Air Documenting provider has reviewed patient's vital signs: yes Common normals: no apparent distress and alert General appearance: cooperative and well kempt HENMT: Common normals: TM's normal bilaterally and external nose normal Face and sinus: normal facial exam Nose: external nose normal Tympanic membrane: TM's normal bilaterally Mouth: oral and palatal mucosa normal and tongue normal Throat: posterior oropharynx normal Other: 7 cm laceration on the left top of the scalp running anterior to posterior. Mostly epidermal but a couple of dermal thickness areas. Does not gape but does have oozing. No crepitus or underlying deformity to the skull. Eye: Common normals: PERRL, EOMs intact bilaterally and conjunctivae normal Conjunctiva: conjunctiva(e) normal Pupil: PERRL Neck & C-Spine: Common normals: full ROM and no lymphadenopathy General: normal visual inspection Cervical spine: cervical ROM normal; no pain with cervical ROM Resp: Common normals: normal respiratory effort, no use of accessory muscles and clear to auscultation bilaterally Effort & inspection: able to speak in complete sentences Auscultation: clear to auscultation bilaterally Cardio: Common normals: regular rate, regular rhythm, S1 normal heart sound, S2 normal heart sound and no murmurs Rate: regular rate Rhythm: regular rhythm Heart sounds: S1 normal and S2 normal Extremity: Common normals: normal to inspection and normal capillary refill Neuro: Common normals: CN's II-XII intact bilaterally and moves all extremities Sensorium/orientation: alert Coordination/balance: does not sway with eyes open and Romberg test negative Gait (neuro): normal gait Motor exam: strength 5/5 throughout and no tremor noted Coordination: does not sway with eyes open Psych: Appearance: well kempt Attitude: engaged Activity/motor behavior: appropriate eye contact Attention/concentration: attention grossly intact Memory/cognition: memory grossly intact Insight: insight good Judgement: judgment good Skin: Narrative: Other than the laceration on the top of the head, no other areas of bruising, broken skin or other abnormality. Course Course ED Course: 59-year-old male with scalp laceration secondary to mechanical fall. No signs of neurological deficits after the fall, no signs of seizure or intoxication. No signs of distracting injury. No signs that the fall was preceded by cardiac event, dehydration, illness or other medical etiology. We discussed closure of the scalp wound. These unfortunately do tend to bleed quite a bit and are best closed with suture or esperanza. Laceration repair: Area is cleansed with alcohol wipe and then Hibiclens, no signs of foreign body seen. Injected with 4 mL of 1% lidocaine with epinephrine with good anesthesia. From posterior to anterior, 8 8 running throws were placed with pretty good closure. Hemostasis was achieved but on closer inspection I was not quite happy with the very center of the laceration and 1 additional interrupted suture was placed just in the midline to ensure that this stays close well and then a final suture was placed posteriorly as that area I had initially appeared too superficial to close but on 2nd inspection I thought it could benefit. Patient tolerated well. Cleansed again, covered in antibiotic ointment and wound care discussed. I stressed that he is certainly likely to have symptoms of concussion. This will most likely be mild headache, dizziness, sensitivity to light, fatigue. Would not expect any signs of serious head injury like seizures, persistent vomiting, loss of consciousness, neurological changes. It is okay to use Tylenol for mild headache. Any alarm symptoms would warrant ED re-evaluation. Okay to continue all of his medications as prescribed. Written instructions are provided. Will need to make a follow-up appointment in the clinic in a week to have the sutures removed. Care of the wound outlined in written instructions Vital Signs Vital signs: Initial Vital Signs Temperature 97.9 F 08/06/25 23:47 Temperature Source Temporal Artery Scan 08/06/25 23:47 Pulse Rate 86 08/06/25 23:47 Respiratory Rate 18 08/06/25 23:47 Blood Pressure 116/77 08/06/25 23:47 Blood Pressure Mean 90 08/06/25 23:47 Blood Pressure Position Sitting 08/06/25 23:47 Pulse Oximetry 99 08/06/25 23:47 Oxygen Delivery Method Room Air 08/06/25 23:47 Vital Signs Temperature 97.9 F 08/06/25 23:47 Pulse Rate 86 08/06/25 23:47 Respiratory Rate 18 08/06/25 23:47 Blood Pressure 116/77 08/06/25 23:47 Pulse Oximetry 99 08/06/25 23:47 Oxygen Delivery Method Room Air 08/06/25 23:47 Temperature 97.9 F 08/07/25 03:25 Pulse Rate 80 08/07/25 03:25 Respiratory Rate 18 08/07/25 03:25 Blood Pressure 121/74 08/07/25 03:25 Pulse Oximetry 99 08/07/25 03:25 Oxygen Delivery Method Room Air 08/07/25 03:25 Discharge Plan Discharge Clinical Impression: Laceration of scalp Patient Disposition: Home w/ Parent or Adult Instructions: Head Injury (ED), Stitches Removal (ED) Additional Instructions: As we discussed, there are no major signs of serious head injury today. I do not recommend a CT scan even though you take aspirin. With a fall this heart, you will definitely have some symptoms of concussion for the next few days. I recommend that you take it easy for a couple of days, no strenuous activity. Try to get plenty of sleep and avoid alcohol. I would expect you to have a mild headache, some mild dizziness, slight vision change, sensitivity to light, fatigue and maybe even a little bit of irritability. I would not expect recurrent vomiting, seizures, loss of consciousness or stroke-like symptoms. If any of those occur, please come back to the ER right away. You may continue taking all of your medications as prescribed and it is okay for you to participate in holiday activities but try to limit alcohol and shorten the duration of the event if you are feeling fatigued. Over doing it the next few days will prolonged your recovery from a few days to much longer. The stitches were placed in a running fashion but for security, I did place an extra stitch right in the middle and then 1 in the back of the incision as well. The long running stitch can be clipped in the middle and the ends can be pulled out cleanly but then remember there are 2 separate stitches 1 in the back and 1 in the middle to remove separately. Please make an appointment with her primary care team to have the stitches removed in 7-10 days. Apply antibiotic ointment or plain Vaseline at least once daily along the stitch line to help reduce infection and help things heal properly. Try not to wash or disrupted for the 1st 12 hours. After 12 hours, you may shower, washing very gently over the area. No aggressive scrubbing for the 1st 3 days. Be careful when brushing your hair to avoid this area as well. Activity Level: Activity as Tolerated Discharge Diet: Regular Prescriptions: No Action carvedilol 6.25 mg tablet 6.25 mg PO BID atorvastatin 20 mg tablet 20 mg PO DAILY nifedipine 60 mg tablet extended release 24hr 60 mg PO DAILY omeprazole 20 mg capsule,delayed release(DR/EC) 20 mg PO DAILY allopurinol 300 mg tablet 300 mg PO DAILY losartan 100 mg tablet 100 mg PO DAILY tadalafil 20 mg tablet 20 mg PO DAILY fenofibrate nanocrystallized 145 mg tablet 145 mg PO DAILY Zepbound 15 mg/0.5 mL pen injector 15 mg subcut DIRECTED torsemide 20 mg tablet 40 mg PO DAILY Follow Up/Referrals: Maximiliano Summers MD [Primary Care Provider, Family Practice] Stand Alone Forms: Exhibition A Info Instructions
== END 2025-08-07 03:26 | disposition home or self-care (01) ==
LOC: ED 08-07 02:57
PROVIDERS: Emergency Provider Family Medicine; PCP Family Medicine
DX: S01.01XA Laceration without foreign body of scalp, initial encounter (principal); W01.10XA Fall on same level from slipping, tripping and stumbling with subsequent striking against unspecified object, initial encounter; Y92.000 Kitchen of unspecified non-institutional (private) residence as the place of occurrence of the external cause
CPT/HCPCS: 12002; 99282; 99283